=== PATIENT | male | born 1950 | race Caucasian/White ===

== ENCOUNTER → 2018-12-14 | Outpatient (CLI) | payer MEDICARE ==
[~2018-12-14] MED LIST: GLYBURIDE-METF1 EAC1 PO; LISINOPRIL-HCT1 EACH PO; LORTAB 7.5-5001 EACH PO; LOVENOX40 MG/0.4 SQ; OMEPRAZOLE20 MG PO; PIOGLITAZONE HC45 MG PO; REGADENOSON 0.4 MG/5 ML SYR IV ONE; VICODIN PO; WELCHOL625 MG PO
--- NOTE | 2018-12-14 18:39 | Myoview Stress Test ---
DATE OF STUDY: 12/14/2018 07:39:00 Stress Test - Treadmill ONLY PROCEDURE: Lexiscan nuclear stress test. INDICATION: Shortness of breath. TECHNIQUE: The patient was given 11 mCi of Myoview. Resting images were obtained in the horizontal long axis, vertical long axis, and short axis. After completion of the resting images, the patient was hooked up to the EKG machine, Lexiscan was infused over 15 seconds. During Lexiscan infusion, the patient had no chest pain and no shortness of breath. The patient was given 33 mCi of Myoview immediately after Lexiscan infusion was completed. Stress images were obtained in the horizontal long axis, vertical long axis, and short axis. RESULTS: As follow. 1. The resting EKG demonstrated normal sinus rhythm with some nonspecific ST and T-wave changes. 2. No EKG changes and no symptoms during Lexiscan infusion. 3. There was normal perfusion to all segments of the myocardium on the resting image. There was a decreased perfusion to the anterior septum on the stress image. 4. The patient had normal left ventricular size and function with an ejection fraction of 68%. CONCLUSION: There was a reversible defect in the anterior septum concerning for ischemia. Wilver Niño MD [facility] /[id number]
== END ==
LOC: NM 12-03 07:15
PROVIDERS: ATTEND Internal Medicine
DX: I25.10 Atherosclerotic heart disease of native coronary artery without angina pectoris (principal)
CPT/HCPCS: 78452; 93017; A9502; J2785